=== PATIENT | female | born 1985 | race Caucasian/White ===

== ENCOUNTER 2020-01-13 16:52 | Emergency (ER) | payer OTHER ==
[~2020-01-13] VITALS: Ht 167.6 cm; Wt 89.4 kg
[2020-01-13 16:59] VITALS: BP 113/74
--- NOTE | 2020-01-13 17:21 | NUR ---
PT AMB TO BED 12 WITH STEADY GAIT
--- NOTE | 2020-01-13 17:39 | NUR ---
34 Y/O FEMALE PRESENTS TO ER WITH PELVIC PAIN/ UPPER RIGHT ABD PAIN 10/10 X3WEEK. PT HAS BEEN WAITING FOR ULTRASOUND OF OVARIES BUT PAIN WAS TOO INTENSE TODAY. PT DENIES INJURY/RECENT ILLNESS. DIARRHEA/NAUSEA PRESENT AND ON/OFF FOR PAST WEEK. BOWEL SOUNDS NORMO ACTIVE IN ALL QUADRANTS. RESP EVEN AND UNLABORED. DENIES ANY SOB/CP. LUNG SOUNDS CLEAR IN BILAT LOBES. AAOX4. CAP REFILL <3. PT IS TEARFUL IN BED DUE TO PAIN. ABLE TO AMBULATE TO RESTROOM TO PROVIDE URINE SAMPLE. NO PMH
[2020-01-13 17:52] LABS: APPEARANCE,URINE CLEAR (CLEAR); BILIRUBIN,URINE NEGATIVE (NEGATIVE); BLOOD, URINE 2+ (NEGATIVE); COLOR,URINE YELLOW (YELLOW); LEUKOCYTE ESTERASE ,URINE 3+ (NEGATIVE); NITRITE, URINE NEGATIVE (NEGATIVE); PH,URINE 6.5 (5.0-9.0); UGLUCOSE NEGATIVE (NEGATIVE)
[2020-01-13 17:52] LABS: BASOPHILS # (AUTO) 0.1 K/uL (0.00-0.22); BASOPHILS % (AUTO) 0.4 % (0.0-2.0); EOSINOPHILS # (AUTO) 0.7 K/uL (0-0.4); EOSINOPHILS % (AUTO) 3.9 % (0.0-4.0); HEMATOCRIT 36.8 % (36-48); HEMOGLOBIN 12.5 g/dL (12.0-16.0); LYMPHOCYTES # (AUTO) 4.9 K/uL (2.5-16.5); LYMPHOCYTES % (AUTO) 27.8 % (20.5-51.1); MEAN CORPUSCULAR HEMOGLOBIN 30 pg (27-31); MEAN CORPUSCULAR HGB CONC 34 g/dL (33-37); MEAN CORPUSCULAR VOLUME 87.5 fL (80-94); MONOCYTES % (AUTO) 11.2 % (1.7-9.3); NEUTROPHILS % (AUTO) 56.7 % (42.2-75.2); PLATELET COUNT (AUTO) 360 K/uL (140-450); RED BLOOD CELL COUNT(AUTO) 4.21 MIL/uL (4.20-5.40); RED CELL DISTRIBUTION WIDTH 13.6 % (11.6-13.7); WHITE BLOOD COUNT (AUTO) 17.7 K/uL (4.8-10.8)
[2020-01-13 18:06] LABS: RBC,URINE 0-5 /HPF (0-5)
[2020-01-13 18:07] LABS: ALBUMIN 3.5 g/dL (3.4-5.0); ANION GAP 14.9 (8-16); CARBON DIOXIDE 25.3 mmol/L (21-32); CREATININE 0.6 mg/dL (0.6-1.3); POTASSIUM 3.2 mmol/L (3.5-5.1); TOTAL BILIRUBIN 0.5 mg/dL (0.0-1.0)
--- NOTE | 2020-01-13 19:24 | NUR ---
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
[2020-01-13] MEDS ORDERED: HYDROcodone/APAP 5/325 MG 1 TAB TAB PO ONE (19:45)
[2020-01-13] MEDS ORDERED: KETOROLAC 30 MG/ML VIAL IM ONE (19:45)
--- NOTE | 2020-01-13 20:02 | NUR ---
ULTRASOUND AT BEDSIDE
--- NOTE | 2020-01-13 22:42 | NUR ---
HIGH SCHOOL ASSISTANT PRINCIPAL WILL CHECK ON RESULTS; OVERDUE
[2020-01-13 23:32] VITALS: BP 101/67
--- NOTE | 2020-01-13 23:33 | NUR ---
Patient discharged with v/s stable. Written and verbal after care instructions given and explained. Patient alert, oriented and verbalized understanding of instructions. Ambulatory with steady gait. All questions addressed prior to discharge. ID band removed. Patient advised to follow up with PMD. Rx of BACTRIM DS/NORCO/NAPROSYN given. Patient educated on indication of medication including possible reaction and side effects. Opportunity to ask questions provided and answered.
== END 2020-01-13 23:33 | disposition home or self-care (01) ==
LOC: MED 16:52
DX: N39.0 Urinary tract infection, site not specified (principal); D21.9 Benign neoplasm of connective and other soft tissue, unspecified; R10.2 Pelvic and perineal pain; Z88.0 Allergy status to penicillin; Z88.1 Allergy status to other antibiotic agents
CPT/HCPCS: 36415; 76856; 80053; 81001; 81025; 85025; 87086; 96372; 99284; J1885; Q0092

== ENCOUNTER 2020-02-08 15:03 | Emergency (ER) | payer OTHER ==
[~2020-02-08] VITALS: Ht 167.6 cm; Wt 85.7 kg
[2020-02-08 15:07] VITALS: BP 112/71
--- NOTE | 2020-02-08 15:21 | NUR ---
34 Y/O F C/C SORE THROAT; RIGHT SIDED FLANK PAIN 9/10 SHARP X 3 DAYS. PER PT NOTICED HEMATURIA WITH NO BURNING SENSATION, PT NOTICED FREQUENT URINATION. PT ALLERGIES ON FILE. HX SPLINECTOMY. NO RX. NO N/V/D. SIDE RAIL X1.
[2020-02-08] MEDS ORDERED: NACL 0.9% 1,000 ML IV ONE (15:50)
[2020-02-08] MEDS ORDERED: GENTAMICIN 120 MG in DEXTROSE 5% 100 ML IV ONE (15:50)
[2020-02-08] MEDS ORDERED: KETOROLAC 30 MG/ML VIAL IVP ONE (15:50)
--- NOTE | 2020-02-08 16:30 | NUR ---
Lab at bedside.
--- NOTE | 2020-02-08 17:00 | NUR ---
pt. in bed laying down comfortably. no further needs at this time. bed at lowest, rails up x 1, bed locked. IV site patent
[2020-02-08 17:03] LABS: BASOPHILS # (AUTO) 0.2 K/uL (0.00-0.22); BASOPHILS % (AUTO) 0.9 % (0.0-2.0); EOSINOPHILS # (AUTO) 0.5 K/uL (0-0.4); EOSINOPHILS % (AUTO) 3.2 % (0.0-4.0); HEMATOCRIT 44.1 % (36-48); HEMOGLOBIN 14.8 g/dL (12.0-16.0); LYMPHOCYTES % (AUTO) 30.6 % (20.5-51.1); MEAN CORPUSCULAR HEMOGLOBIN 31 pg (27-31); MEAN CORPUSCULAR HGB CONC 34 g/dL (33-37); MEAN CORPUSCULAR VOLUME 92.3 fL (80-94); MONOCYTES # (AUTO) 1.4 K/uL (0.8-1.0); MONOCYTES % (AUTO) 8.7 % (1.7-9.3); NEUTROPHILS # (AUTO) 9.2 K/uL (1.8-7.7); NEUTROPHILS % (AUTO) 56.6 % (42.2-75.2); PLATELET COUNT (AUTO) 408 K/uL (140-450); RED BLOOD CELL COUNT(AUTO) 4.78 MIL/uL (4.20-5.40); RED CELL DISTRIBUTION WIDTH 13.9 % (11.6-13.7); WHITE BLOOD COUNT (AUTO) 16.3 K/uL (4.8-10.8)
[2020-02-08 17:12] LABS: APPEARANCE,URINE SL CLOUDY (CLEAR); BILIRUBIN,URINE NEGATIVE (NEGATIVE); BLOOD, URINE 3+ (NEGATIVE); COLOR,URINE YELLOW (YELLOW); LEUKOCYTE ESTERASE ,URINE 2+ (NEGATIVE); NITRITE, URINE NEGATIVE (NEGATIVE); UGLUCOSE NEGATIVE (NEGATIVE)
[2020-02-08 17:21] LABS: ALBUMIN 3.8 g/dL (3.4-5.0); ANION GAP 14.6 (8-16); CARBON DIOXIDE 25.3 mmol/L (21-32); CREATININE 0.9 mg/dL (0.6-1.3); POTASSIUM 3.9 mmol/L (3.5-5.1); TOTAL BILIRUBIN 0.3 mg/dL (0.0-1.0)
[2020-02-08 17:22] LABS: RBC,URINE >100 /HPF (0-5); WBC,URINE 80-100 /HPF (0-5)
[2020-02-08] MEDS ORDERED: fentaNYL 0.05 MG/ML VIAL IVP ONE (17:30)
[2020-02-08] MEDS ORDERED: ONDANSETRON 4 MG/2 ML VIAL IVP ONE (17:30)
--- NOTE | 2020-02-08 17:31 | NUR ---
Dr. Luna at bedside evaluating patient.
--- NOTE | 2020-02-08 17:51 | NUR ---
medication for pain and nausea given. pt. tolerated medications well. nadr.
--- NOTE | 2020-02-08 18:12 | NUR ---
Pt. reports pain was 8/10 and now reports 4/10 pain and tolerable. no further needs at this time. bed rails up x 1, bed at lowest and locked.
--- NOTE | 2020-02-08 18:40 | NUR ---
Patient discharged with v/s stable. Written and verbal after care instructions given and explained. Patient alert, oriented and verbalized understanding of instructions. Ambulatory with steady gait. All questions addressed prior to discharge. ID band removed. Patient advised to follow up with PMD. Rx of zofran, bactrim, naprosyn, norco given. Patient educated on indication of medication including possible reaction and side effects. Opportunity to ask questions provided and answered.
[2020-02-08 18:41] VITALS: BP 120/74
--- NOTE | 2020-02-08 20:29 | NUR ---
PHARMACY CALLED RE: BACTRIM ALLERGY AND RX CHANGED TO [facility]CR[facility] PER DR. JEAN BAPTISTE
== END 2020-02-08 18:40 | disposition home or self-care (01) ==
LOC: MED 15:03
DX: N12 Tubulo-interstitial nephritis, not specified as acute or chronic (principal); J02.9 Acute pharyngitis, unspecified; D69.41 Evans syndrome; Z98.890 Other specified postprocedural states; Z88.0 Allergy status to penicillin; Z88.1 Allergy status to other antibiotic agents; Z88.8 Allergy status to other drugs, medicaments and biological substances
CPT/HCPCS: 36415; 80053; 81001; 81025; 83605; 85025; 87040; 87081; 87086; 87186; 96365; 96375; 99284; J1580; J1885; J2405; J3010; J7030; J7060; 99283

== ENCOUNTER 2020-03-05 20:37 | Emergency (ER) | payer OTHER ==
[~2020-03-05] VITALS: Ht 167.6 cm; Wt 85.7 kg
[2020-03-05 20:43] VITALS: BP 100/49
[2020-03-05] MEDS ORDERED: KETOROLAC 30 MG/ML VIAL IVP ONE (21:15)
[2020-03-05] MEDS ORDERED: NACL 0.9% 500 ML IV ONE (21:15)
[2020-03-05 21:32] LABS: BASOPHILS # (AUTO) 0.1 K/uL (0.00-0.22); BASOPHILS % (AUTO) 0.6 % (0.0-2.0); EOSINOPHILS # (AUTO) 0.5 K/uL (0-0.4); HEMATOCRIT 43.1 % (36-48); HEMOGLOBIN 14.7 g/dL (12.0-16.0); LYMPHOCYTES # (AUTO) 5.5 K/uL (2.5-16.5); MEAN CORPUSCULAR HEMOGLOBIN 31 pg (27-31); MEAN CORPUSCULAR HGB CONC 34 g/dL (33-37); MEAN CORPUSCULAR VOLUME 89.2 fL (80-94); MONOCYTES # (AUTO) 1.3 K/uL (0.8-1.0); MONOCYTES % (AUTO) 9.6 % (1.7-9.3); NEUTROPHILS # (AUTO) 6.3 K/uL (1.8-7.7); NEUTROPHILS % (AUTO) 45.8 % (42.2-75.2); PLATELET COUNT (AUTO) 495 K/uL (140-450); RED BLOOD CELL COUNT(AUTO) 4.83 MIL/uL (4.20-5.40); RED CELL DISTRIBUTION WIDTH 13.4 % (11.6-13.7); WHITE BLOOD COUNT (AUTO) 13.8 K/uL (4.8-10.8)
[2020-03-05 21:35] LABS: BILIRUBIN,URINE NEGATIVE (NEGATIVE); BLOOD, URINE 1+ (NEGATIVE); COLOR,URINE YELLOW (YELLOW); LEUKOCYTE ESTERASE ,URINE 3+ (NEGATIVE); NITRITE, URINE NEGATIVE (NEGATIVE); UGLUCOSE NEGATIVE (NEGATIVE)
[2020-03-05 21:40] LABS: APPEARANCE,URINE HAZY (CLEAR)
[2020-03-05 21:47] LABS: ALBUMIN 3.7 g/dL (3.4-5.0); ANION GAP 12.9 (8-16); CARBON DIOXIDE 26.2 mmol/L (21-32); CREATININE 0.9 mg/dL (0.6-1.3); POTASSIUM 4.1 mmol/L (3.5-5.1); TOTAL BILIRUBIN 0.5 mg/dL (0.0-1.0)
[2020-03-05 21:50] LABS: WBC,URINE 20-60 /HPF (0-5)
[2020-03-05 23:54] VITALS: BP 132/78
== END 2020-03-05 23:55 | disposition home or self-care (01) ==
LOC: MED 20:37
DX: N39.0 Urinary tract infection, site not specified (principal); R19.7 Diarrhea, unspecified; Z79.899 Other long term (current) drug therapy; Z88.0 Allergy status to penicillin; Z88.1 Allergy status to other antibiotic agents; Z88.8 Allergy status to other drugs, medicaments and biological substances
CPT/HCPCS: 36415; 74176; 80053; 81001; 81025; 85025; 87086; 96374; 99284; J1885; J7030; 96361

== ENCOUNTER 2020-04-26 12:13 | Emergency (ER) | payer OTHER ==
[~2020-04-26] VITALS: Ht 167.6 cm; Wt 81.6 kg
[2020-04-26 12:21] VITALS: BP 102/59
--- NOTE | 2020-04-26 12:22 | NUR ---
34 y/o female presented to ED c/o abdominal pain x 1 week and right sided flank pain x 2 days. pt states whenever she swallows anything, saliva, fluids , food , it kinney down her throat down to her right side of abd where it starts giving her a cramping sensation. Pt denies V/D, c/o nausea x 2 days. Pt denies diarrhea but states her stool has been soft and has a foul odor. Pt denies dysuria , hematuria. Pt states she previously had gallstones and was supposed to meet w/ surgeon but has not been able to yet. Pt denies taking any medication for the pain. Pt placed in gown and connected to library monitor , pulse ox and BP cuff. Pt resting in bed at lowest position, HOb elevated, side rail x1. PMH: spleenectomy Ax: penicillins, ciprofloxacin, doxycycline, sufamethaxole
--- NOTE | 2020-04-26 12:26 | NUR ---
Pt ambulated to bed 10.
--- NOTE | 2020-04-26 12:30 | NUR ---
pt provided urine sample.
--- NOTE | 2020-04-26 13:01 | NUR ---
Patient being evaluated by Dr. Arellano at bedside.
[2020-04-26] MEDS ORDERED: MORPHINE SULFATE 4 MG/ML SYR IVP ONE (13:10)
[2020-04-26] MEDS ORDERED: ONDANSETRON 4 MG/2 ML VIAL IVP ONE (13:10)
[2020-04-26] MEDS ORDERED: NACL 0.9% 1,000 ML IV ONE (13:10)
[2020-04-26 13:39] LABS: APPEARANCE,URINE CLEAR (CLEAR); BILIRUBIN,URINE NEGATIVE (NEGATIVE); BLOOD, URINE 1+ (NEGATIVE); COLOR,URINE YELLOW (YELLOW); LEUKOCYTE ESTERASE ,URINE 2+ (NEGATIVE); NITRITE, URINE NEGATIVE (NEGATIVE); UGLUCOSE NEGATIVE (NEGATIVE)
[2020-04-26 13:40] LABS: BASOPHILS # (AUTO) 0.1 K/uL (0.00-0.22); BASOPHILS % (AUTO) 0.6 % (0.0-2.0); EOSINOPHILS # (AUTO) 0.3 K/uL (0-0.4); EOSINOPHILS % (AUTO) 2.6 % (0.0-4.0); HEMATOCRIT 41.9 % (36-48); LYMPHOCYTES # (AUTO) 5.3 K/uL (2.5-16.5); LYMPHOCYTES % (AUTO) 44.8 % (20.5-51.1); MEAN CORPUSCULAR HEMOGLOBIN 31 pg (27-31); MEAN CORPUSCULAR HGB CONC 34 g/dL (33-37); MEAN CORPUSCULAR VOLUME 91.7 fL (80-94); MONOCYTES # (AUTO) 1.1 K/uL (0.8-1.0); MONOCYTES % (AUTO) 9.4 % (1.7-9.3); NEUTROPHILS % (AUTO) 42.6 % (42.2-75.2); PLATELET COUNT (AUTO) 478 K/uL (140-450); RED BLOOD CELL COUNT(AUTO) 4.57 MIL/uL (4.20-5.40); RED CELL DISTRIBUTION WIDTH 14.3 % (11.6-13.7); WHITE BLOOD COUNT (AUTO) 11.8 K/uL (4.8-10.8)
[2020-04-26 13:43] LABS: WBC,URINE 20-60 /HPF (0-5)
[2020-04-26 14:01] LABS: ALBUMIN 3.8 g/dL (3.4-5.0); ANION GAP 14.2 (8-16); CARBON DIOXIDE 24.8 mmol/L (21-32); CREATININE 0.9 mg/dL (0.6-1.3); TOTAL BILIRUBIN 0.6 mg/dL (0.0-1.0)
--- NOTE | 2020-04-26 14:24 | NUR ---
PT TAKEN TO CT VIA WHEELCHAIR.
--- NOTE | 2020-04-26 14:39 | NUR ---
PT RETURNED FROM CT VIA WHEELCHAIR.
--- NOTE | 2020-04-26 14:39 | NUR ---
PT AMBULATED TO RESTROOM W/ STEADY GAIT.
--- NOTE | 2020-04-26 14:42 | NUR ---
PT RESTING IN BED AT LOWEST POSITION, HOB ELEVATED, SIDE RAIL X1. PT RECONNECTED TO MERCHANDISING CONSULTANT, PULSE OX.
--- NOTE | 2020-04-26 16:30 | NUR ---
ERMD AT BEDSIDE.
--- NOTE | 2020-04-26 17:04 | NUR ---
Patient discharged with v/s stable. Written and verbal after care instructions given and explained. Patient alert, oriented and verbalized understanding of instructions. Ambulatory with steady gait. All questions addressed prior to discharge. ID band removed. Patient advised to follow up with PMD. Rx of ZOFRAN, MONUROL, NORCO given. Patient educated on indication of medication including possible reaction and side effects. Opportunity to ask questions provided and answered. PT STATES HER MOTHER WILL BE PICKING HER UP.
[2020-04-26 17:40] VITALS: BP 108/63
--- NOTE | 2020-04-26 17:43 | NUR ---
Note magalisannel in EDM - 04/26/20 at 1744 by YANIV Patient discharged with v/s stable. Written and verbal after care instructions given and explained. Patient alert, oriented and verbalized understanding of instructions. Ambulatory with steady gait. All questions addressed prior to discharge. ID band removed. Patient advised to follow up with PMD. Rx of ZOFRAN, MONUROL, NORCO given. Patient educated on indication of medication including possible reaction and side effects. Opportunity to ask questions provided and answered. PT STATES HER MOTHER WILL BE PICKING HER UP.
--- NOTE | 2020-04-28 07:44 | NUR ---
LATE ENTRY- NS 0.9% DISCONTINUED AT 1704.
== END 2020-04-26 17:04 | disposition home or self-care (01) ==
LOC: MED 12:13
DX: N39.0 Urinary tract infection, site not specified (principal); Z88.2 Allergy status to sulfonamides; Z88.1 Allergy status to other antibiotic agents
CPT/HCPCS: 36415; 74177; 80053; 81001; 81025; 83690; 85025; 87086; 96361; 96374; 96375; 99285; J2270; J2405; J7030; Q9967

== ENCOUNTER 2020-09-24 16:47 | Emergency (ER) | payer OTHER ==
[~2020-09-24] VITALS: Ht 167.6 cm; Wt 77.1 kg
[2020-09-24 16:51] VITALS: BP 113/73
[2020-09-24] MEDS ORDERED: KETOROLAC 30 MG/ML VIAL IM ONE (17:00)
--- NOTE | 2020-09-24 17:00 | NUR ---
PT AMB TO BED 11. HANDED ON URINE CUP.
--- NOTE | 2020-09-24 17:01 | NUR ---
PT C/O LEFT SHOULDER PAIN RADIATING TO LEFT SIDED CHEST WITH PRESSURE SENSATION AND NAUSEA SINCE 11AM X TODAY. PT STATES MOVEMENT WORSENS THE PAIN ON THE CHEST. SKIN IS PINK/WARM/DRY; AAOX4 WITH EVEN AND STEADY GAIT; LUNGS CLEAR BL; HR EVEN AND REGULAR; PT DENIES ANY FEVER, CP, SOB, OR COUGH AT THIS TIME; PATIENT STATES PAIN OF 6/10 AT THIS TIME; VSS; PATIENT POSITIONED FOR COMFORT; HOB ELEVATED; BEDRAILS UP X1; BED DOWN. ER MD MADE AWARE OF PT STATUS.
--- NOTE | 2020-09-24 17:02 | NUR ---
LAB AT BEDSIDE.
[2020-09-24] MEDS ORDERED: ONDANSETRON 4 MG ODT PO ONE (17:05)
--- NOTE | 2020-09-24 17:11 | NUR ---
XRAY IS AT BEDSIDE.
[2020-09-24 17:14] LABS: BASOPHILS # (AUTO) 0.2 K/uL (0.00-0.22); EOSINOPHILS # (AUTO) 0.3 K/uL (0-0.4); EOSINOPHILS % (AUTO) 1.9 % (0.0-4.0); HEMATOCRIT 40.6 % (36-48); HEMOGLOBIN 13.9 g/dL (12.0-16.0); LYMPHOCYTES # (AUTO) 5.3 K/uL (2.5-16.5); MEAN CORPUSCULAR HEMOGLOBIN 31 pg (27-31); MEAN CORPUSCULAR HGB CONC 34 g/dL (33-37); MEAN CORPUSCULAR VOLUME 90.1 fL (80-94); MONOCYTES # (AUTO) 1.3 K/uL (0.8-1.0); MONOCYTES % (AUTO) 7.4 % (1.7-9.3); NEUTROPHILS # (AUTO) 10.6 K/uL (1.8-7.7); NEUTROPHILS % (AUTO) 59.7 % (42.2-75.2); PLATELET COUNT (AUTO) 406 K/uL (140-450); RED BLOOD CELL COUNT(AUTO) 4.51 MIL/uL (4.20-5.40); RED CELL DISTRIBUTION WIDTH 13.5 % (11.6-13.7); WHITE BLOOD COUNT (AUTO) 17.7 K/uL (4.8-10.8)
[2020-09-24 18:05] LABS: ALBUMIN 4.1 g/dL (3.4-5.0); ANION GAP 16.9 (8-16); CARBON DIOXIDE 21.9 mmol/L (21-32); CREATININE 0.9 mg/dL (0.6-1.3); POTASSIUM 3.8 mmol/L (3.5-5.1); TOTAL BILIRUBIN 0.3 mg/dL (0.0-1.0)
[2020-09-24 18:27] VITALS: BP 110/71
--- NOTE | 2020-09-24 18:27 | NUR ---
Patient discharged with v/s stable. Written and verbal after care instructions given and explained. Patient alert, oriented and verbalized understanding of instructions. Ambulatory with steady gait. All questions addressed prior to discharge. ID band removed. Patient advised to follow up with PMD. Rx of Naproxen and Prednisone given. Patient educated on indication of medication including possible reaction and side effects. Opportunity to ask questions provided and answered.
== END 2020-09-24 18:27 | disposition home or self-care (01) ==
LOC: MED 16:47
DX: M75.22 Bicipital tendinitis, left shoulder (principal); R07.9 Chest pain, unspecified; R11.0 Nausea; Z88.0 Allergy status to penicillin; Z88.1 Allergy status to other antibiotic agents; Z88.2 Allergy status to sulfonamides; Z88.8 Allergy status to other drugs, medicaments and biological substances
CPT/HCPCS: 36415; 71045; 73020; 80053; 81002; 81025; 84484; 85025; 93005; 96372; 99285; J1885; Q0092; Q0162

== ENCOUNTER 2020-12-20 14:29 | Emergency (ER) | payer OTHER ==
[~2020-12-20] VITALS: Ht 167.6 cm; Wt 61.7 kg
[2020-12-20 14:47] VITALS: BP 111/68
[2020-12-20] MEDS ORDERED: ONDANSETRON 4 MG ODT PO ONE (15:25)
[2020-12-20] MEDS ORDERED: KETOROLAC 60 MG/2 ML VIAL IM ONE (15:25)
[2020-12-20 15:43] VITALS: BP 114/66
== END 2020-12-20 15:44 | disposition home or self-care (01) ==
LOC: MED 14:29
DX: N39.0 Urinary tract infection, site not specified (principal); Z88.0 Allergy status to penicillin; Z88.1 Allergy status to other antibiotic agents; Z88.2 Allergy status to sulfonamides
CPT/HCPCS: 81002; 81025; 87086; 96372; 99283; J1885; Q0162

== ENCOUNTER 2021-03-11 13:15 | Emergency (ER) | payer OTHER ==
[~2021-03-11] VITALS: Ht 167.6 cm; Wt 78.5 kg
[2021-03-11 13:33] VITALS: BP 104/69
[2021-03-11] MEDS ORDERED: MORPHINE SULFATE 4 MG/ML SYR IM ONE (14:05)
[2021-03-11] MEDS ORDERED: ACET-9525 PO (14:12)
[2021-03-11] MEDS ORDERED: CEPH500C16 PO (14:12)
[2021-03-11 14:39] VITALS: BP 103/70
== END 2021-03-11 14:39 | disposition home or self-care (01) ==
LOC: MED 13:15
DX: N39.0 Urinary tract infection, site not specified (principal); Z88.0 Allergy status to penicillin; Z88.1 Allergy status to other antibiotic agents; Z88.2 Allergy status to sulfonamides; Z88.8 Allergy status to other drugs, medicaments and biological substances; Z79.899 Other long term (current) drug therapy; Z90.49 Acquired absence of other specified parts of digestive tract
CPT/HCPCS: 81002; 81025; 96372; 99283; J2270

== ENCOUNTER 2022-01-24 17:08 | Emergency (ER) | payer OTHER ==
[~2022-01-24] VITALS: Ht 167.6 cm; Wt 90.8 kg
[~2022-01-24 17:08] MED LIST: ACET-9525 PO; CEPH500C16 PO
--- NOTE | 2022-01-24 17:24 | NUR ---
Pt ambulated to bed 02.
[2022-01-24 17:32] VITALS: BP 110/80
[2022-01-24] MEDS ORDERED: LIDOCAINE 2% 1000 MG/50 ML VIAL INJ ONE (17:50)
--- NOTE | 2022-01-24 17:53 | NUR ---
36/F BIB SELF C/O ABSCESS ON THE R UPPER INNER MOUTH WITH PAIN RADIATING TO THE RIGHT TEMPORAL AREA. PAIN STATED THAT THE PAIN IS 6/10 , THROBBING CONSTANT PAIN, CANT SWALLOW, OR EAT BECAUSE OF THE DISCOMFORT. PMHX SPLEEN REMOVAL 2017, GALLBLADDER REMOVAL 2019. MEDS ZINC , VIT C ALLERGIES SEE LIST ABOVE
--- NOTE | 2022-01-24 18:15 | NUR ---
PATIENT STABLE IN BED, ALL NEEDS MET
--- NOTE | 2022-01-24 19:00 | NUR ---
Chart checked and completed. The patient's care was reviewed and supervised by Marty Stokes, RN, RN.
--- NOTE | 2022-01-24 19:05 | NUR ---
Pt states pain 8/10 at this time, requesting pain medication. States Tramadol prior without relief. Dr. Hawley made aware and verbal order Hydrocodone/Acetaminophen 5-325mg PO.
[2022-01-24] MEDS ORDERED: HYDROcodone/APAP 5/325 MG 1 TAB TAB ONE (19:14)
[2022-01-24] MEDS ORDERED: HYDROcodone/APAP 5/325 MG 1 TAB TAB PO ONE (19:15)
--- NOTE | 2022-01-24 19:21 | NUR ---
Pt report given to Shahid. Transfer of care at this time.
--- NOTE | 2022-01-24 19:34 | NUR ---
RECEIVED HANDOFF FROM IZZY XAVIER. pt acknowledged education on I&D procedure on right upper inner cheek. I&D EQUIPMENT AT BEDSIDE.
--- NOTE | 2022-01-24 19:39 | NUR ---
Per pt, pt was taking Clindamycin from 01/01-01/08 for prophylactic treatment prescribed by her dentist. Pt stated she is not taking any medication for UTI treatment. Dr. Hawley made aware.
[2022-01-24] MEDS ORDERED: AMOX-1230 PO (20:55)
[2022-01-24] MEDS ORDERED: DIPH25TA53 PO (20:56)
[2022-01-24] MEDS ORDERED: CEPH-588 PO (20:57)
--- NOTE | 2022-01-24 21:00 | NUR ---
I&D PERFORMED BY DR. SAUNDERS ON RIGHT INNER CHEECK. PT TOLERATED PROCEDURE WELL. ICE PACK APPLIED.
[2022-01-24 21:20] VITALS: BP 99/63
--- NOTE | 2022-01-24 21:22 | NUR ---
Patient discharged with v/s stable. Written and verbal after care instructions given and explained. Patient alert, oriented and verbalized understanding of instructions. Ambulatory with steady gait. All questions addressed prior to discharge. ID band removed. Patient advised to follow up with PMD. Rx of AMOXICILLIN, CEPHALEXIN, DIPHENHYDRAMINE given. Patient educated on indication of medication including possible reaction and side effects. Opportunity to ask questions provided and answered.
--- NOTE | 2022-01-24 21:24 | NUR ---
PT refused to do survey.
== END 2022-01-24 21:20 | disposition home or self-care (01) ==
LOC: MED 17:08
DX: K04.7 Periapical abscess without sinus (principal); N39.0 Urinary tract infection, site not specified
CPT/HCPCS: 41800; 81002; 99285; J2001